=== PATIENT | female | born 2000 | race Caucasian/White ===

== ENCOUNTER 2019-07-24 15:50 | Emergency (ER) | payer OTHER ==
[~2019-07-24] VITALS: Ht 172.7 cm; Wt 104.3 kg
[2019-07-24 15:55] VITALS: BP_SYST 125
[2019-07-24] MEDS ORDERED: KETOROLAC TROMETHAMINE 60 MG/2 ML VIAL IM ONE (17:45)
[2019-07-24] MEDS ORDERED: BACITRACIN ZINC 15 GM TOPICAL OINTMENT TP ONE (19:00)
[2019-07-24] MEDS ORDERED: BACITRACIN 1 GM OINT TP ONE (19:09)
[2019-07-24 20:00] VITALS: BP_SYST 120
[2019-07-24] MEDS ORDERED: LIDOCAINE 1%, 20 ML MDV 20 ML ONE (20:09)
== END 2019-07-24 20:00 | disposition home or self-care (01) ==
LOC: SED 15:50
DX: S22.32XA Fracture of one rib, left side, initial encounter for closed fracture (principal); S13.4XXA Sprain of ligaments of cervical spine, initial encounter; V43.92XA Unspecified car occupant injured in collision with other type car in traffic accident, initial encounter; Y93.89 Activity, other specified; Y92.413 State road as the place of occurrence of the external cause; Y99.8 Other external cause status
CPT/HCPCS: 70450; 72125; 73030; 81025; 96372; 99285; J1885; J2001